=== PATIENT | male | born 1995 | race Caucasian/White ===

== ENCOUNTER 2019-08-09 20:28 | Emergency (ER) | payer SELFPAY ==
[~2019-08-09] VITALS: Ht 172.7 cm; Wt 103.0 kg
[2019-08-09 20:34] VITALS: BP 135/81
== END 2019-08-09 21:11 | disposition home or self-care (01) ==
LOC: ED 20:28
DX: S61.411A Laceration without foreign body of right hand, initial encounter (principal); W26.0XXA Contact with knife, initial encounter; Y93.89 Activity, other specified; Y92.89 Other specified places as the place of occurrence of the external cause; Y99.8 Other external cause status
CPT/HCPCS: J2001